=== PATIENT | male | born 1985 | race Caucasian/White ===

== ENCOUNTER 2017-04-16 03:54 | Emergency (ER) | payer OTHER ==
[~2017-04-16] VITALS: Ht 177.8 cm; Wt 90.0 kg
[2017-04-16] MEDS ORDERED: LORazepam 1MG TABLET ONE (04:07)
[2017-04-16] MEDS ORDERED: LORazepam 1MG TABLET PO ONE (04:30)
[2017-04-16 04:38] LABS: BLOOD UREA NITROGEN 15 mg/dL (7-18)
[2017-04-16] MEDS ORDERED: QUET25TA5 PO (05:01)
[2017-04-16 05:07] LABS: ACETAMINOPHEN < 2 mcg/mL (10-30)
[2017-04-16 05:41] LABS: DAU SCREEN DISCLAIMER
[2017-04-16 07:49] VITALS: BP 133/92
== END 2017-04-16 09:37 | disposition home or self-care (01) ==
LOC: ED 09:00
DX: R45.851 Suicidal ideations (principal); F10.10 Alcohol abuse, uncomplicated
CPT/HCPCS: 36415; 80048; 80307; 80329; 82040; 85025; 99284; G0480

== ENCOUNTER 2017-06-06 03:42 | Emergency (ER) | payer SELFPAY ==
[~2017-06-06 03:42] MED LIST: QUET25TA5 PO
== END 2017-06-06 04:07 | disposition left against medical advice (07) ==
LOC: ED 04:01
DX: F20.89 Other schizophrenia (principal); Z72.9 Problem related to lifestyle, unspecified; F10.120 Alcohol abuse with intoxication, uncomplicated; F10.151 Alcohol abuse with alcohol-induced psychotic disorder with hallucinations
CPT/HCPCS: 99284

== ENCOUNTER 2017-06-08 02:32 | Emergency (ER) | payer SELFPAY | END 2017-06-08 03:13 | disposition left against medical advice (07) | LOC: ED 03:08 | DX: F23 Brief psychotic disorder (principal); F20.0 Paranoid schizophrenia; F10.10 Alcohol abuse, uncomplicated; F10.129 Alcohol abuse with intoxication, unspecified | CPT/HCPCS: 99284 ==

== ENCOUNTER 2017-10-31 14:32 | Emergency (ER) | payer SELFPAY | END 2017-10-31 15:13 | disposition home or self-care (01) | LOC: ED 15:07 | DX: F32.9 Major depressive disorder, single episode, unspecified (principal); F20.9 Schizophrenia, unspecified | CPT/HCPCS: 99284 ==

== ENCOUNTER 2017-11-01 06:39 | Emergency (ER) | payer SELFPAY ==
[~2017-11-01] VITALS: Ht 172.7 cm; Wt 106.9 kg
[2017-11-01 06:42] VITALS: BP 132/87
== END 2017-11-01 07:03 | disposition home or self-care (01) ==
LOC: ED 06:45
DX: F10.951 Alcohol use, unspecified with alcohol-induced psychotic disorder with hallucinations (principal); F20.9 Schizophrenia, unspecified
CPT/HCPCS: 99283

== ENCOUNTER 2017-11-04 09:51 | Inpatient (IN) | payer OTHER ==
[~2017-11-04] VITALS: Ht 172.7 cm; Wt 108.5 kg
[2017-11-04 10:25] LABS: HEMATOCRIT 44.5 % (39.2-51.8); HEMOGLOBIN 15.1 g/dL (13.7-18.0); WHITE BLOOD COUNT 7.1 x10^3/uL (3.4-10)
[2017-11-04] MEDS ORDERED: SODIUM CHLORIDE FLUSH 10ML SYR IVF ONE (10:30)
[2017-11-04] MEDS ORDERED: ONDANSETRON 2MG/ML, 2ML IVPush ONE (10:30)
[2017-11-04] MEDS ORDERED: PANTOPRAZOLE 80 MG in SODIUM CHLORIDE 0.9% 100 ML IV SCH (10:30)
[2017-11-04] MEDS ORDERED: LORazepam 2 MG/ML, 1ML IVPush ONE (10:30)
[2017-11-04] MEDS ORDERED: SODIUM CHLORIDE 0.9% 1,000ML IVBOLUS ONE (10:30)
[2017-11-04] MEDS ORDERED: PLEASE ENTER PATIENTS WEIGHT MC SCH (10:30)
[2017-11-04 10:33] LABS: ASPARTATE AMINO TRANSFERASE 125 U/L (15-37); BLOOD UREA NITROGEN 7 mg/dL (7-18)
[2017-11-04] MEDS ORDERED: ONDANSETRON 2MG/ML, 2ML ONE (10:43)
[2017-11-04] MEDS ORDERED: LORazepam 2 MG/ML, 1ML ONE (10:43)
[2017-11-04] MEDS ORDERED: POTASSIUM CHLORIDE 40 MEQ in SODIUM CHLORIDE 0.9% 500 ML IV ONE (11:30)
[2017-11-04] MEDS ORDERED: PANTOPRAZOLE 80 MG in SODIUM CHLORIDE 0.9% 50 ML IV ONE (11:30)
[2017-11-04] MEDS ORDERED: D5%-0.45NACL+KCL 20MEQ 1,000 ML IV SCH (12:37)
[2017-11-04] MEDS ORDERED: QUETIAPINE 25MG TABLET PO SCH (13:00)
[2017-11-04] MEDS ORDERED: ONDANSETRON ODT 4 MG PO PRN (13:00)
[2017-11-04] MEDS ORDERED: ACETAMINOPHEN 325 MG TABLET PO PRN (13:00)
[2017-11-04] MEDS: NICOTINE 14MG/24 HR PATCH.TD24 TD SCH (13:00)
[2017-11-04] MEDS ORDERED: ONDANSETRON 2MG/ML, 2ML IVPush PRN (13:00)
[2017-11-04] MEDS ORDERED: TEMAZEPAM 15 MG CAPSULE PO PRN (13:00)
[2017-11-04] MEDS ORDERED: LABETALOL 5MG/ML, 20ML IVPush PRN (13:00)
[2017-11-04 14:20] VITALS: BP 131/88
[2017-11-04] MEDS: PANTOPRAZOLE 40 MG IV IVPush SCH (14:45)
[2017-11-04] MEDS: POTASSIUM CHLORIDE 20 MEQ, MAGNESIUM SULFATE 2 GM, THIAMINE 100 MG, MVI ADULT 10 ML, FO... IV SCH ×2 (14:45→22:53)
[2017-11-04] MEDS: LORazepam 2 MG/ML, 1ML IVPush PRN ×2 (15:30→21:20)
[2017-11-04] MEDS ORDERED: LORazepam 1MG TABLET PO PRN (15:30)
[2017-11-04] MEDS: LORazepam 1MG TABLET PO SCH ×2 (15:55→20:05)
[2017-11-04 20:07] VITALS: BP 141/102
[2017-11-04 21:01] VITALS: BP 149/90
[2017-11-05] MEDS: LORazepam 1MG TABLET PO SCH ×2 (00:54→04:21)
[2017-11-05 01:56] VITALS: BP 169/92
[2017-11-05] MEDS: PANTOPRAZOLE 40 MG IV IVPush SCH (04:21)
[2017-11-05 05:26] LABS: BLOOD UREA NITROGEN 6 mg/dL (7-18)
[2017-11-05 05:27] LABS: HEMATOCRIT 38.4 % (39.2-51.8); HEMOGLOBIN 13.1 g/dL (13.7-18.0); WHITE BLOOD COUNT 5.2 x10^3/uL (3.4-10)
[2017-11-05 05:30] LABS: ASPARTATE AMINO TRANSFERASE 83 U/L (15-37)
[2017-11-05] MEDS ORDERED: LORazepam 2 MG/ML, 1ML IV PRN ×5 (08:00)
[2017-11-05] MEDS ORDERED: LORazepam 0.5MG TABLET PO PRN (08:00)
[2017-11-05] MEDS ORDERED: LORazepam 1MG TABLET PO PRN ×4 (08:00)
[2017-11-05] MEDS: NICOTINE 14MG/24 HR PATCH.TD24 TD SCH (09:00)
[2017-11-05] MEDS ORDERED: POTASSIUM CHLORIDE 20 MEQ, MAGNESIUM SULFATE 1 GM, FOLIC ACID 1 MG, THIAMINE 100 MG, MV... IV SCH (09:00)
[2017-11-05 09:04] VITALS: BP 144/98
[2017-11-06] MEDS ORDERED: OMEPRAZOLE 20 MG CAPSULE.DR PO SCH (07:30)
== END 2017-11-05 13:48 | disposition left against medical advice (07) | DRG 432 ==
LOC: ED 10:30 → EDIP 11:15 → 3NW 12:41 → 4WST 14:18
PROVIDERS: ADMIT Hospitalist; ATTEND Hospitalist
DX: K70.10 Alcoholic hepatitis without ascites (principal); I85.11 Secondary esophageal varices with bleeding; K92.2 Gastrointestinal hemorrhage, unspecified; F20.9 Schizophrenia, unspecified; R45.851 Suicidal ideations; E87.6 Hypokalemia; F43.10 Post-traumatic stress disorder, unspecified; F17.210 Nicotine dependence, cigarettes, uncomplicated; F10.20 Alcohol dependence, uncomplicated; Y90.0 Blood alcohol level of less than 20 mg/100 ml; Z87.11 Personal history of peptic ulcer disease; Z96.643 Presence of artificial hip joint, bilateral; Z88.6 Allergy status to analgesic agent; I86.4 Gastric varices
CPT/HCPCS: 36415; 74022; 76700; 80053; 81001; 83690; 83735; 84100; 85025; 85610; 87086; 87186; 93005; J2405; J3411; J3475; J3480; J7042; C9113; J2060; J7030; J7040

== ENCOUNTER 2017-11-09 00:15 | Emergency (ER) | payer OTHER ==
[~2017-11-09] VITALS: Ht 172.7 cm; Wt 105.0 kg
[2017-11-09 00:18] VITALS: BP 140/100
== END 2017-11-09 01:53 | disposition left against medical advice (07) ==
LOC: ED 00:50
DX: F10.220 Alcohol dependence with intoxication, uncomplicated (principal); F17.210 Nicotine dependence, cigarettes, uncomplicated
CPT/HCPCS: 99283

== ENCOUNTER 2017-11-10 01:54 | Emergency (ER) | payer OTHER | END 2017-11-10 02:10 | disposition left against medical advice (07) | LOC: ED 02:04 | DX: R45.851 Suicidal ideations (principal); Z53.21 Procedure and treatment not carried out due to patient leaving prior to being seen by health care provider ==

== ENCOUNTER 2017-11-10 11:45 | Emergency (ER) | payer OTHER ==
[~2017-11-10] VITALS: Ht 172.7 cm; Wt 100.0 kg
[2017-11-10 12:57] LABS: HEMATOCRIT 47.4 % (39.2-51.8); HEMOGLOBIN 15.6 g/dL (13.7-18.0); WHITE BLOOD COUNT 6.3 x10^3/uL (3.4-10)
[2017-11-10 13:06] LABS: BLOOD UREA NITROGEN 7 mg/dL (7-18)
[2017-11-10 13:09] LABS: ACETAMINOPHEN < 2 mcg/mL (10-30)
[2017-11-10 13:38] LABS: DAU SCREEN DISCLAIMER
[2017-11-10] MEDS ORDERED: ZIPRASIDONE 20 MG INJ IM ONE ×2 (14:00→15:44)
[2017-11-10] MEDS ORDERED: IBUPROFEN 200 MG TABLET PO ONE (21:30)
[2017-11-10] MEDS ORDERED: IBUPROFEN 200 MG TABLET ONE (21:44)
[2017-11-10 22:40] VITALS: BP 124/85
== END 2017-11-10 22:42 | disposition home or self-care (01) ==
LOC: ED 18:06
DX: F10.120 Alcohol abuse with intoxication, uncomplicated (principal); R45.851 Suicidal ideations; F17.210 Nicotine dependence, cigarettes, uncomplicated; Z88.5 Allergy status to narcotic agent
CPT/HCPCS: 36415; 80048; 80307; 80329; 82040; 85025; 96372; 99284; J3486; G0479; G0480

== ENCOUNTER 2017-11-13 06:47 | Emergency (ER) | payer OTHER | END 2017-11-13 07:04 | disposition left against medical advice (07) | LOC: ED 06:58 | DX: Z53.21 Procedure and treatment not carried out due to patient leaving prior to being seen by health care provider (principal) ==

== ENCOUNTER 2017-11-13 10:33 | Emergency (ER) | payer OTHER ==
[~2017-11-13] VITALS: Ht 172.7 cm; Wt 110.0 kg
[2017-11-13 13:23] VITALS: BP 134/74
== END 2017-11-13 13:26 | disposition home or self-care (01) ==
LOC: ED 12:41
DX: S60.221A Contusion of right hand, initial encounter (principal); R45.851 Suicidal ideations; F20.9 Schizophrenia, unspecified; F17.210 Nicotine dependence, cigarettes, uncomplicated; F10.220 Alcohol dependence with intoxication, uncomplicated; F32.9 Major depressive disorder, single episode, unspecified
CPT/HCPCS: 99284

== ENCOUNTER 2017-11-18 03:01 | Emergency (ER) | payer OTHER ==
[~2017-11-18] VITALS: Ht 177.8 cm; Wt 100.0 kg
[2017-11-18 03:01] VITALS: BP 132/84
== END 2017-11-18 03:33 | disposition home or self-care (01) ==
LOC: ED 03:27
DX: F41.1 Generalized anxiety disorder (principal); F43.12 Post-traumatic stress disorder, chronic; F10.10 Alcohol abuse, uncomplicated; F20.9 Schizophrenia, unspecified; F32.9 Major depressive disorder, single episode, unspecified
CPT/HCPCS: 99284

== ENCOUNTER 2017-11-23 04:26 | Emergency (ER) | payer OTHER ==
[~2017-11-23] VITALS: Ht 172.7 cm; Wt 101.2 kg
[2017-11-23 04:27] VITALS: BP 151/97
[2017-11-24] MEDS ORDERED: CLON0.25 PO (10:34)
== END 2017-11-23 06:05 | disposition left against medical advice (07) ==
LOC: ED 05:59
DX: R31.9 Hematuria, unspecified (principal)

== ENCOUNTER 2017-12-04 18:39 | Emergency (ER) | payer OTHER ==
[~2017-12-04] VITALS: Ht 180.3 cm; Wt 109.5 kg
[~2017-12-04 18:39] MED LIST changes: +CLON0.25 PO
[2017-12-04 18:44] VITALS: BP 138/104
[2017-12-04] MEDS ORDERED: LORazepam 0.5MG TABLET ONE (18:56)
[2017-12-04] MEDS ORDERED: LORazepam 0.5MG TABLET PO ONE (19:00)
== END 2017-12-04 19:22 | disposition left against medical advice (07) ==
LOC: ED 18:49
DX: F43.12 Post-traumatic stress disorder, chronic (principal); F10.220 Alcohol dependence with intoxication, uncomplicated
CPT/HCPCS: 99283

== ENCOUNTER 2017-12-06 17:09 | Inpatient (IN) | payer OTHER ==
[~2017-12-06] VITALS: Ht 172.7 cm; Wt 105.8 kg
[2017-12-06] MEDS ORDERED: ONDANSETRON 2MG/ML, 2ML IVPush ONE (17:30)
[2017-12-06] MEDS ORDERED: SODIUM CHLORIDE FLUSH 10ML SYR IVF ONE (17:30)
[2017-12-06] MEDS ORDERED: THIAMINE 100MG TABLET PO ONE (17:30)
[2017-12-06] MEDS ORDERED: SODIUM CHLORIDE 0.9% 1,000ML IVBOLUS ONE (17:30)
[2017-12-06] MEDS ORDERED: LORazepam 2 MG/ML, 1ML ONE ×2 (17:38→18:14)
[2017-12-06] MEDS ORDERED: ONDANSETRON 2MG/ML, 2ML ONE (17:38)
[2017-12-06] MEDS ORDERED: THIAMINE 100MG TABLET ONE (17:38)
[2017-12-06 17:44] LABS: BASOPHILS # (AUTO) 0.02 x10^3/uL (0-0.1); BASOPHILS % (AUTO) 0 % (0-1); EOSINOPHILS % (AUTO) 0 % (1-7); LYMPHOCYTES # (AUTO) 0.81 x10^3/uL (1-3.4); LYMPHOCYTES % (AUTO) 12 % (22-44); MD NO; MEAN CORPUSCULAR HEMOGLOBIN 34.2 pg (27.5-34.5); MEAN CORPUSCULAR HGB CONC 33.6 g/dL (33.2-36.2); MEAN CORPUSCULAR VOLUME 101.7 fL (81-97); MEAN PLATELET VOLUME 7.8 fL (7.4-10.4); MONOCYTES # (AUTO) 0.72 x10^3/uL (0.2-0.8); MONOCYTES % (AUTO) 11 % (2-9); NEUTROPHILS # (AUTO) 5.13 x10^3/uL (1.8-6.8); NEUTROPHILS % (AUTO) 77 % (42-75); PLATELET COUNT 256 x10^3/uL (130-400); RED BLOOD COUNT 4.27 x10^6/uL (4.38-5.82); RED CELL DISTRIBUTION WIDTH 19.7 % (9.4-14.8)
[2017-12-06] MEDS: LORazepam 2 MG/ML, 1ML IVPush PRN ×3 (17:45→18:19)
[2017-12-06 17:55] LABS: ALANINE AMINOTRANSFERASE 106 U/L (12-78); ALBUMIN 3.3 g/dL (3.4-5.0); ANION GAP 13 mmol/L (5-15); CALCIUM 8.5 mg/dL (8.5-10.1); CHLORIDE 99 mmol/L (98-107); CREATININE 1.03 mg/dL (0.7-1.3)
[2017-12-06 17:58] LABS: ALKALINE PHOSPHATASE 145 U/L (45-117); BILIRUBIN,TOTAL 0.5 mg/dL (0.2-1.0); TOTAL PROTEIN 7.8 g/dL (6.4-8.2)
[2017-12-06] MEDS ORDERED: PLEASE ENTER ALLERGIES MC SCH (18:00)
[2017-12-06] MEDS ORDERED: QUET100T4 PO (18:31)
[2017-12-06] MEDS ORDERED: CHLORDIAZEPOXIDE 25 MG CAPSULE PO ONE (19:00)
[2017-12-06] MEDS ORDERED: LORazepam 2 MG/ML, 1ML IV PRN ×4 (19:30)
[2017-12-06] MEDS ORDERED: LORazepam 0.5MG TABLET PO PRN (19:30)
[2017-12-06] MEDS ORDERED: LORazepam 1MG TABLET PO PRN ×3 (19:30)
[2017-12-06] MEDS ORDERED: SODIUM CHLORIDE 0.9% 1,000 ML IV SCH (19:32)
[2017-12-06 19:50] LABS: INTERNATIONAL NORMALIZED RATIO 1.03 (0.93-1.1); PROTHROMBIN TIME 10.7 Seconds (9.6-11.5)
[2017-12-06] MEDS ORDERED: POTASSIUM CHLORIDE 20 MEQ, MAGNESIUM SULFATE 1 GM, FOLIC ACID 1 MG, THIAMINE 100 MG, MV... IV SCH (20:00)
[2017-12-06] MEDS ORDERED: PANTOPRAZOLE 80 MG in SODIUM CHLORIDE 0.9% 50 ML IV ONE (20:00)
[2017-12-06] MEDS ORDERED: ONDANSETRON 2MG/ML, 2ML IVPush PRN (20:00)
[2017-12-06] MEDS ORDERED: ONDANSETRON ODT 4 MG PO PRN (20:00)
[2017-12-06] MEDS ORDERED: LABETALOL 5MG/ML, 20ML IVPush PRN (20:00)
[2017-12-06] MEDS: NICOTINE 14MG/24 HR PATCH.TD24 TD SCH (20:00)
[2017-12-06 20:07] LABS: FREE T4 (FREE THYROXINE) 0.88 ng/dL (0.76-1.46)
[2017-12-06 21:15] LABS: MICROSCOPIC INDICATED
[2017-12-06 21:16] LABS: CULTURE INDICATED? YES
[2017-12-06] MEDS: PANTOPRAZOLE 80 MG in SODIUM CHLORIDE 0.9% 100 ML IV SCH ×2 (21:18→22:22)
[2017-12-06 21:28] LABS: AMPHETAMINE SCREEN, URINE Negative (Negative); BARBITURATE SCREEN, URINE Negative (Negative); BENZODIAZEPINE SCREEN, URINE Positive (Negative); CANNABINOID SCREEN, URINE Negative (Negative); COCAINE SCREEN, URINE Negative (Negative); METHADONE SCREEN, URINE Negative (Negative); OPIATE SCREEN, URINE Negative (Negative)
[2017-12-06 22:01] VITALS: BP 138/84
[2017-12-06] MEDS: LORazepam 2 MG/ML, 1ML IV PRN (23:03)
[2017-12-06] MEDS: GABAPENTIN 100 MG CAPSULE PO SCH (23:04)
[2017-12-07 01:18] VITALS: BP 133/91
[2017-12-07] MEDS: CEFTRIAXONE PMX 1GM/50ML 50 ML IV SCH (01:37)
[2017-12-07 05:44] LABS: BASOPHILS # (AUTO) 0.06 x10^3/uL (0-0.1); BASOPHILS % (AUTO) 1 % (0-1); EOSINOPHILS # (AUTO) 0.01 x10^3/uL (0-0.4); EOSINOPHILS % (AUTO) 0 % (1-7); LYMPHOCYTES # (AUTO) 1.09 x10^3/uL (1-3.4); LYMPHOCYTES % (AUTO) 20 % (22-44); MD NO; MEAN CORPUSCULAR HEMOGLOBIN 34.8 pg (27.5-34.5); MEAN CORPUSCULAR HGB CONC 34.2 g/dL (33.2-36.2); MEAN CORPUSCULAR VOLUME 101.9 fL (81-97); MEAN PLATELET VOLUME 8.5 fL (7.4-10.4); MONOCYTES # (AUTO) 0.65 x10^3/uL (0.2-0.8); MONOCYTES % (AUTO) 12 % (2-9); NEUTROPHILS # (AUTO) 3.61 x10^3/uL (1.8-6.8); NEUTROPHILS % (AUTO) 67 % (42-75); PLATELET COUNT 190 x10^3/uL (130-400); RED BLOOD COUNT 3.79 x10^6/uL (4.38-5.82); RED CELL DISTRIBUTION WIDTH 19.8 % (9.4-14.8)
[2017-12-07 05:50] LABS: ALBUMIN 2.6 g/dL (3.4-5.0); ANION GAP 10 mmol/L (5-15); CALCIUM 7.3 mg/dL (8.5-10.1); CHLORIDE 103 mmol/L (98-107)
[2017-12-07 05:55] LABS: ALANINE AMINOTRANSFERASE 83 U/L (12-78); ALKALINE PHOSPHATASE 123 U/L (45-117); BILIRUBIN,TOTAL 0.6 mg/dL (0.2-1.0); CHOL/HDL RATIO 3.1; CHOLESTEROL, TOTAL 178 mg/dL (140-239); CREATININE 0.94 mg/dL (0.7-1.3); HDL CHOL % 32 % (26-37); HDL CHOLESTEROL (DIRECT) 57 mg/dL (40-60); LDL CHOLESTEROL,CALCULATED 104 mg/dL (54-169); LDL/HDL RATIO 1.8 (0.5-3.0); TOTAL PROTEIN 6.6 g/dL (6.4-8.2); TRIGLYCERIDES 83 mg/dL (50-200); VLDL CHOLESTEROL 17 mg/dL (0-25)
[2017-12-07] MEDS ORDERED: POTASSIUM CHLORIDE 20 MEQ TAB.ER.PRT PO ONE (07:30)
[2017-12-07 07:55] VITALS: BP 139/98
[2017-12-07] MEDS: GABAPENTIN 100 MG CAPSULE PO SCH ×3 (07:58→22:49)
[2017-12-07] MEDS: PANTOPRAZOLE 80 MG in SODIUM CHLORIDE 0.9% 100 ML IV SCH ×2 (08:02→17:36)
[2017-12-07] MEDS ORDERED: NS + 20MEQ KCL 1,000 ML IV SCH (08:30)
[2017-12-07 13:01] LABS: CLOSTRIDIUM DIFFICILE ANTIGEN POSITIVE; CLOSTRIDIUM DIFFICILE TOXIN NEGATIVE (Negative)
[2017-12-07 13:10] LABS: OCCULT BLOOD NEGATIVE (NEGATIVE)
[2017-12-07] MEDS: metroNIDAZOLE 500 MG TABLET PO SCH ×2 (14:00→22:49)
[2017-12-07] MEDS: LORazepam 2 MG/ML, 1ML IV PRN ×2 (14:12→16:30)
[2017-12-07 14:13] VITALS: BP 134/98
[2017-12-07] MEDS: SODIUM CHLORIDE 0.9% 1,000 ML IV SCH (17:36)
[2017-12-07 18:34] VITALS: BP 137/95
[2017-12-07] MEDS: LORazepam 1MG TABLET PO PRN (19:58)
[2017-12-07] MEDS: NICOTINE 14MG/24 HR PATCH.TD24 TD SCH (20:00)
[2017-12-08 02:00] VITALS: BP 136/93
[2017-12-08] MEDS: CEFTRIAXONE PMX 1GM/50ML 50 ML IV SCH (02:01)
[2017-12-08] MEDS: LORazepam 1MG TABLET PO PRN (02:01)
[2017-12-08] MEDS: HYDROcodone/APAP 5/325 TABLET PO PRN ×5 (02:35→22:25)
[2017-12-08] MEDS: PANTOPRAZOLE 80 MG in SODIUM CHLORIDE 0.9% 100 ML IV SCH (05:19)
[2017-12-08] MEDS: SODIUM CHLORIDE 0.9% 1,000 ML IV SCH ×2 (05:19→17:35)
[2017-12-08 05:31] LABS: ALBUMIN 2.5 g/dL (3.4-5.0); ANION GAP 7 mmol/L (5-15); CALCIUM 7.4 mg/dL (8.5-10.1); CHLORIDE 107 mmol/L (98-107)
[2017-12-08 05:32] LABS: BASOPHILS # (AUTO) 0.02 x10^3/uL (0-0.1); BASOPHILS % (AUTO) 0 % (0-1); CREATININE 0.82 mg/dL (0.7-1.3); EOSINOPHILS # (AUTO) 0.06 x10^3/uL (0-0.4); EOSINOPHILS % (AUTO) 1 % (1-7); LYMPHOCYTES # (AUTO) 1.46 x10^3/uL (1-3.4); LYMPHOCYTES % (AUTO) 18 % (22-44); MD NO; MEAN CORPUSCULAR HEMOGLOBIN 34.4 pg (27.5-34.5); MEAN CORPUSCULAR HGB CONC 33.6 g/dL (33.2-36.2); MEAN CORPUSCULAR VOLUME 102.4 fL (81-97); MEAN PLATELET VOLUME 8.5 fL (7.4-10.4); MONOCYTES # (AUTO) 0.56 x10^3/uL (0.2-0.8); MONOCYTES % (AUTO) 7 % (2-9); NEUTROPHILS % (AUTO) 74 % (42-75); PLATELET COUNT 143 x10^3/uL (130-400); RED BLOOD COUNT 3.69 x10^6/uL (4.38-5.82); RED CELL DISTRIBUTION WIDTH 19.3 % (9.4-14.8)
[2017-12-08] MEDS: metroNIDAZOLE 500 MG TABLET PO SCH ×3 (06:16→21:40)
[2017-12-08] MEDS ORDERED: POTASSIUM CHLORIDE 20 MEQ TAB.ER.PRT PO ONE (08:00)
[2017-12-08] MEDS ORDERED: MAGNESIUM SULFATE PMX 2GM/50ML 50 ML IV ONE (08:00)
[2017-12-08 08:26] VITALS: BP 138/94
[2017-12-08] MEDS: THIAMINE 100MG TABLET PO SCH (08:27)
[2017-12-08] MEDS: FOLIC ACID 1 MG TABLET PO SCH (08:27)
[2017-12-08] MEDS: GABAPENTIN 100 MG CAPSULE PO SCH ×3 (08:27→21:40)
[2017-12-08] MEDS ORDERED: SODIUM PHOSPHATE 4 MEQ/ML IV SCH (11:30)
[2017-12-08] MEDS ORDERED: SODIUM PHOSPHATE 40 MEQ in SODIUM CHLORIDE 0.9% 500 ML IV SCH (11:30)
[2017-12-08 14:14] VITALS: BP 132/89
[2017-12-08] MEDS ORDERED: POTASSIUM CHLORIDE 20 MEQ TAB.ER.PRT PO SCH (17:00)
[2017-12-08] MEDS: NICOTINE 14MG/24 HR PATCH.TD24 TD SCH (20:00)
[2017-12-08 20:54] VITALS: BP 143/94
[2017-12-08] MEDS: PANTOPRAZOLE 40 MG IV IVPush SCH (21:40)
[2017-12-09] MEDS ORDERED: CEFTRIAXONE 1,000 MG in SODIUM CHLORIDE 0.9% 50 ML IV SCH (00:30)
[2017-12-09] MEDS: HYDROcodone/APAP 5/325 TABLET PO PRN ×5 (02:31→22:02)
[2017-12-09 03:10] VITALS: BP 129/90
[2017-12-09] MEDS: SODIUM CHLORIDE 0.9% 1,000 ML IV SCH ×3 (03:57→23:54)
[2017-12-09 05:39] LABS: BASOPHILS # (AUTO) 0.13 x10^3/uL (0-0.1); BASOPHILS % (AUTO) 1 % (0-1); EOSINOPHILS # (AUTO) 0.22 x10^3/uL (0-0.4); EOSINOPHILS % (AUTO) 2 % (1-7); LYMPHOCYTES # (AUTO) 1.45 x10^3/uL (1-3.4); LYMPHOCYTES % (AUTO) 13 % (22-44); MD NO; MEAN CORPUSCULAR HEMOGLOBIN 34.7 pg (27.5-34.5); MEAN CORPUSCULAR HGB CONC 33.7 g/dL (33.2-36.2); MEAN PLATELET VOLUME 8.8 fL (7.4-10.4); MONOCYTES # (AUTO) 0.62 x10^3/uL (0.2-0.8); MONOCYTES % (AUTO) 5 % (2-9); NEUTROPHILS # (AUTO) 9.11 x10^3/uL (1.8-6.8); NEUTROPHILS % (AUTO) 79 % (42-75); PLATELET COUNT 116 x10^3/uL (130-400); RED BLOOD COUNT 3.74 x10^6/uL (4.38-5.82); RED CELL DISTRIBUTION WIDTH 19.2 % (9.4-14.8)
[2017-12-09 05:46] LABS: ALBUMIN 2.6 g/dL (3.4-5.0); ANION GAP 6 mmol/L (5-15); CALCIUM 7.6 mg/dL (8.5-10.1); CHLORIDE 106 mmol/L (98-107); CREATININE 0.73 mg/dL (0.7-1.3)
[2017-12-09] MEDS: metroNIDAZOLE 500 MG TABLET PO SCH ×3 (05:46→22:02)
[2017-12-09 06:36] VITALS: BP 132/92
[2017-12-09] MEDS ORDERED: POTASSIUM CHLORIDE 20 MEQ TAB.ER.PRT PO ONE (08:00)
[2017-12-09] MEDS ORDERED: MAGNESIUM SULFATE PMX 2GM/50ML 50 ML IV ONE (08:00)
[2017-12-09] MEDS: FOLIC ACID 1 MG TABLET PO SCH (08:39)
[2017-12-09] MEDS: GABAPENTIN 100 MG CAPSULE PO SCH ×3 (08:39→22:02)
[2017-12-09] MEDS: THIAMINE 100MG TABLET PO SCH (08:39)
[2017-12-09] MEDS: PANTOPRAZOLE 40 MG IV IVPush SCH ×2 (08:40→22:02)
[2017-12-09 12:45] VITALS: BP 117/76
[2017-12-09 19:25] VITALS: BP 137/93
[2017-12-09] MEDS: NICOTINE 14MG/24 HR PATCH.TD24 TD SCH (19:51)
[2017-12-10 00:54] VITALS: BP 147/94
[2017-12-10] MEDS: HYDROcodone/APAP 5/325 TABLET PO PRN ×5 (02:07→20:36)
[2017-12-10 05:11] LABS: BASOPHILS # (AUTO) 0.06 x10^3/uL (0-0.1); BASOPHILS % (AUTO) 1 % (0-1); EOSINOPHILS # (AUTO) 0.19 x10^3/uL (0-0.4); EOSINOPHILS % (AUTO) 2 % (1-7); LYMPHOCYTES # (AUTO) 1.78 x10^3/uL (1-3.4); LYMPHOCYTES % (AUTO) 15 % (22-44); MD NO; MEAN CORPUSCULAR HEMOGLOBIN 34.9 pg (27.5-34.5); MEAN CORPUSCULAR HGB CONC 33.6 g/dL (33.2-36.2); MEAN CORPUSCULAR VOLUME 104.1 fL (81-97); MEAN PLATELET VOLUME 9.4 fL (7.4-10.4); MONOCYTES # (AUTO) 0.77 x10^3/uL (0.2-0.8); MONOCYTES % (AUTO) 7 % (2-9); NEUTROPHILS # (AUTO) 8.95 x10^3/uL (1.8-6.8); NEUTROPHILS % (AUTO) 76 % (42-75); PLATELET COUNT 126 x10^3/uL (130-400); RED BLOOD COUNT 3.67 x10^6/uL (4.38-5.82); RED CELL DISTRIBUTION WIDTH 19.2 % (9.4-14.8)
[2017-12-10 05:20] LABS: ALBUMIN 2.7 g/dL (3.4-5.0); ANION GAP 8 mmol/L (5-15); CALCIUM 7.8 mg/dL (8.5-10.1); CHLORIDE 107 mmol/L (98-107); CREATININE 0.74 mg/dL (0.7-1.3)
[2017-12-10 05:47] LABS: FOLATE LEVEL 7.7 ng/mL (3.1-17.5)
[2017-12-10] MEDS: metroNIDAZOLE 500 MG TABLET PO SCH ×3 (06:29→22:02)
[2017-12-10 07:15] VITALS: BP 142/89
[2017-12-10] MEDS ORDERED: POTASSIUM CHLORIDE 20 MEQ TAB.ER.PRT PO ONE (07:30)
[2017-12-10] MEDS: THIAMINE 100MG TABLET PO SCH (07:59)
[2017-12-10] MEDS: PANTOPRAZOLE 40 MG IV IVPush SCH (07:59)
[2017-12-10] MEDS: GABAPENTIN 100 MG CAPSULE PO SCH ×3 (07:59→20:36)
[2017-12-10] MEDS: FOLIC ACID 1 MG TABLET PO SCH (07:59)
[2017-12-10] MEDS: SODIUM CHLORIDE 0.9% 1,000 ML IV SCH ×2 (10:33→20:35)
[2017-12-10 12:36] VITALS: BP 138/85
[2017-12-10] MEDS ORDERED: CYANOCOBALAMIN 1,000 MCG/ML, 1ML IM ONE (17:00)
[2017-12-10 20:00] VITALS: BP 143/103
[2017-12-10] MEDS: NICOTINE 14MG/24 HR PATCH.TD24 TD SCH (20:00)
[2017-12-10] MEDS: OMEPRAZOLE 20 MG CAPSULE.DR PO SCH (20:36)
[2017-12-10 22:04] VITALS: BP 149/97
[2017-12-11] MEDS: HYDROcodone/APAP 5/325 TABLET PO PRN ×5 (01:13→17:59)
[2017-12-11 02:00] VITALS: BP 158/100
[2017-12-11] MEDS: metroNIDAZOLE 500 MG TABLET PO SCH ×2 (05:16→13:55)
[2017-12-11] MEDS: SODIUM CHLORIDE 0.9% 1,000 ML IV SCH (05:20)
[2017-12-11 05:40] LABS: BASOPHILS # (AUTO) 0.08 x10^3/uL (0-0.1); BASOPHILS % (AUTO) 1 % (0-1); EOSINOPHILS # (AUTO) 0.16 x10^3/uL (0-0.4); EOSINOPHILS % (AUTO) 2 % (1-7); LYMPHOCYTES # (AUTO) 1.82 x10^3/uL (1-3.4); LYMPHOCYTES % (AUTO) 21 % (22-44); MD NO; MEAN CORPUSCULAR HEMOGLOBIN 35.1 pg (27.5-34.5); MEAN CORPUSCULAR HGB CONC 33.7 g/dL (33.2-36.2); MEAN CORPUSCULAR VOLUME 104.3 fL (81-97); MEAN PLATELET VOLUME 8.7 fL (7.4-10.4); MONOCYTES % (AUTO) 11 % (2-9); NEUTROPHILS # (AUTO) 5.57 x10^3/uL (1.8-6.8); NEUTROPHILS % (AUTO) 65 % (42-75); PLATELET COUNT 132 x10^3/uL (130-400); RED BLOOD COUNT 3.77 x10^6/uL (4.38-5.82); RED CELL DISTRIBUTION WIDTH 19.2 % (9.4-14.8)
[2017-12-11 05:44] LABS: CHLORIDE 109 mmol/L (98-107)
[2017-12-11 05:52] LABS: ALBUMIN 2.8 g/dL (3.4-5.0); ANION GAP 8 mmol/L (5-15); CALCIUM 8.4 mg/dL (8.5-10.1)
[2017-12-11 07:50] VITALS: BP 149/94
[2017-12-11] MEDS: GABAPENTIN 100 MG CAPSULE PO SCH ×2 (09:34→16:33)
[2017-12-11] MEDS: OMEPRAZOLE 20 MG CAPSULE.DR PO SCH (09:34)
[2017-12-11] MEDS: FOLIC ACID 1 MG TABLET PO SCH (09:34)
[2017-12-11] MEDS: THIAMINE 100MG TABLET PO SCH (09:34)
[2017-12-11] MEDS ORDERED: NICO-486 TD (10:46)
[2017-12-11] MEDS ORDERED: THIA100T6 PO (10:46)
[2017-12-11] MEDS ORDERED: OMEP-110 PO (10:46)
[2017-12-11] MEDS ORDERED: METR500T PO (10:46)
[2017-12-11] MEDS ORDERED: FOLI-17 PO (10:46)
[2017-12-11 12:53] VITALS: BP 142/87
== END 2017-12-12 01:58 | disposition home or self-care (01) | DRG 371 ==
LOC: ED 18:24 → EDIP 19:08 → UNDOADMIN 19:12 → EDIP 19:12 → 4EST 20:13
PROVIDERS: ADMIT Hospitalist; ATTEND Hospitalist
DX: A04.72 Enterocolitis due to Clostridium difficile, not specified as recurrent (principal); K22.6 Gastro-esophageal laceration-hemorrhage syndrome; D69.6 Thrombocytopenia, unspecified; K29.21 Alcoholic gastritis with bleeding; E44.1 Mild protein-calorie malnutrition; F20.9 Schizophrenia, unspecified; F10.239 Alcohol dependence with withdrawal, unspecified; N39.0 Urinary tract infection, site not specified; K70.10 Alcoholic hepatitis without ascites; D75.89 Other specified diseases of blood and blood-forming organs; E87.6 Hypokalemia; F17.200 Nicotine dependence, unspecified, uncomplicated; F41.1 Generalized anxiety disorder; Z96.643 Presence of artificial hip joint, bilateral; F32.9 Major depressive disorder, single episode, unspecified; Z96.642 Presence of left artificial hip joint; F43.10 Post-traumatic stress disorder, unspecified; K52.9 Noninfective gastroenteritis and colitis, unspecified; K76.0 Fatty (change of) liver, not elsewhere classified; Z66 Do not resuscitate; Z82.49 Family history of ischemic heart disease and other diseases of the circulatory system; Z83.3 Family history of diabetes mellitus; Z87.11 Personal history of peptic ulcer disease; Z91.19 Patient's noncompliance with other medical treatment and regimen; Z68.35 Body mass index [BMI] 35.0-35.9, adult; F10.229 Alcohol dependence with intoxication, unspecified
CPT/HCPCS: 36415; 71045; 80048; 80053; 80061; 80307; 81001; 82040; 82272; 82607; 82746; 83690; 83735; 84100; 84439; 84443; 85014; 85018; 85025; 85610; 87086; 87324; 87493; 93005; 96361; 96374; 96375; 96376; J0696; J2405; J3411; J3475; J3480; J7042; C9113; J2060; J3420; J7030; J7040

== ENCOUNTER 2017-12-31 11:37 | Emergency (ER) | payer SELFPAY ==
[~2017-12-31] VITALS: Ht 175.3 cm; Wt 96.9 kg
[~2017-12-31 11:37] MED LIST changes: +FOLI-17 PO; +METR500T PO; +NICO-486 TD; +OMEP-110 PO; +QUET100T4 PO; +THIA100T6 PO
[2017-12-31 11:53] VITALS: BP 147/107
[2017-12-31 12:41] LABS: BASOPHILS # (AUTO) 0.13 x10^3/uL (0-0.1); BASOPHILS % (AUTO) 1 % (0-1); EOSINOPHILS # (AUTO) 0.02 x10^3/uL (0-0.4); EOSINOPHILS % (AUTO) 0 % (1-7); LYMPHOCYTES # (AUTO) 4.03 x10^3/uL (1-3.4); LYMPHOCYTES % (AUTO) 42 % (22-44); MD NO; MEAN CORPUSCULAR HEMOGLOBIN 33.9 pg (27.5-34.5); MEAN CORPUSCULAR HGB CONC 33.4 g/dL (33.2-36.2); MEAN CORPUSCULAR VOLUME 101.4 fL (81-97); MEAN PLATELET VOLUME 7.5 fL (7.4-10.4); MONOCYTES % (AUTO) 6 % (2-9); NEUTROPHILS # (AUTO) 4.92 x10^3/uL (1.8-6.8); NEUTROPHILS % (AUTO) 51 % (42-75); PLATELET COUNT 371 x10^3/uL (130-400); RED CELL DISTRIBUTION WIDTH 15.3 % (9.4-14.8)
[2017-12-31 12:59] LABS: ALBUMIN 3.8 g/dL (3.4-5.0); ANION GAP 14 mmol/L (5-15); CALCIUM 8.9 mg/dL (8.5-10.1); CHLORIDE 106 mmol/L (98-107); CREATININE 1.18 mg/dL (0.7-1.3); SALICYLATE LEVEL 2.2 mg/dL (2.8-20.0)
[2017-12-31 13:22] LABS: ACETAMINOPHEN < 2 mcg/mL (10-30)
== END 2017-12-31 14:44 | disposition left against medical advice (07) ==
LOC: ED 12:49
DX: R45.851 Suicidal ideations (principal); F10.229 Alcohol dependence with intoxication, unspecified; F43.10 Post-traumatic stress disorder, unspecified; F20.9 Schizophrenia, unspecified; F32.9 Major depressive disorder, single episode, unspecified
CPT/HCPCS: 36415; 80048; 80307; 80329; 82040; 82140; 85025; 99284; G0480

== ENCOUNTER 2018-01-08 02:04 | Emergency (ER) | payer OTHER ==
[~2018-01-08] VITALS: Ht 172.7 cm; Wt 100.0 kg
[2018-01-08 02:38] VITALS: BP 142/96
[2018-01-08 02:57] LABS: MICROSCOPIC INDICATED
[2018-01-08 03:05] LABS: AMPHETAMINE SCREEN, URINE Negative (Negative); BARBITURATE SCREEN, URINE Negative (Negative); BENZODIAZEPINE SCREEN, URINE Negative (Negative); CANNABINOID SCREEN, URINE Negative (Negative); COCAINE SCREEN, URINE Negative (Negative); METHADONE SCREEN, URINE Negative (Negative); OPIATE SCREEN, URINE Negative (Negative)
[2018-01-08 03:13] LABS: CULTURE INDICATED? NO
[2018-01-08 03:30] LABS: ALANINE AMINOTRANSFERASE 26 U/L (12-78); ALBUMIN 3.3 g/dL (3.4-5.0); ANION GAP 16 mmol/L (5-15); CALCIUM 7.9 mg/dL (8.5-10.1); CHLORIDE 104 mmol/L (98-107)
[2018-01-08 03:33] LABS: ALKALINE PHOSPHATASE 111 U/L (45-117); BILIRUBIN,TOTAL 0.4 mg/dL (0.2-1.0); CREATININE 0.94 mg/dL (0.7-1.3); TOTAL PROTEIN 7.7 g/dL (6.4-8.2)
[2018-01-08 03:45] LABS: BASOPHILS # (AUTO) 0.05 x10^3/uL (0-0.1); BASOPHILS % (AUTO) 1 % (0-1); EOSINOPHILS # (AUTO) 0.01 x10^3/uL (0-0.4); EOSINOPHILS % (AUTO) 0 % (1-7); LYMPHOCYTES # (AUTO) 1.84 x10^3/uL (1-3.4); LYMPHOCYTES % (AUTO) 29 % (22-44); MD SCAN; MEAN CORPUSCULAR HEMOGLOBIN 34.1 pg (27.5-34.5); MEAN CORPUSCULAR HGB CONC 34.1 g/dL (33.2-36.2); MEAN CORPUSCULAR VOLUME 99.9 fL (81-97); MEAN PLATELET VOLUME 8.2 fL (7.4-10.4); MONOCYTES # (AUTO) 0.35 x10^3/uL (0.2-0.8); MONOCYTES % (AUTO) 6 % (2-9); NEUTROPHILS # (AUTO) 4.18 x10^3/uL (1.8-6.8); NEUTROPHILS % (AUTO) 65 % (42-75); PLATELET COUNT 92 x10^3/uL (130-400); RED BLOOD COUNT 4.79 x10^6/uL (4.38-5.82); RED CELL DISTRIBUTION WIDTH 14.9 % (9.4-14.8)
== END 2018-01-08 04:44 | disposition home or self-care (01) ==
LOC: ED 03:07
DX: F10.120 Alcohol abuse with intoxication, uncomplicated (principal); F17.200 Nicotine dependence, unspecified, uncomplicated; G89.29 Other chronic pain; K22.6 Gastro-esophageal laceration-hemorrhage syndrome; F20.9 Schizophrenia, unspecified; F32.9 Major depressive disorder, single episode, unspecified; F41.9 Anxiety disorder, unspecified
CPT/HCPCS: 36415; 80053; 80307; 81001; 83690; 85025; 99284

== ENCOUNTER 2018-03-06 19:14 | Emergency (ER) | payer OTHER ==
[2018-03-06 19:15] VITALS: BP 142/88
== END 2018-03-06 20:28 | disposition home or self-care (01) ==
LOC: ED 20:22
DX: F10.120 Alcohol abuse with intoxication, uncomplicated (principal); F43.12 Post-traumatic stress disorder, chronic; F20.9 Schizophrenia, unspecified; F32.9 Major depressive disorder, single episode, unspecified
CPT/HCPCS: 99283

== ENCOUNTER 2018-03-07 06:06 | Emergency (ER) | payer OTHER ==
[~2018-03-07] VITALS: Ht 172.7 cm; Wt 72.0 kg
== END 2018-03-07 06:34 | disposition left against medical advice (07) ==
LOC: ED 06:18
DX: R45.851 Suicidal ideations (principal)
CPT/HCPCS: 99283